=== PATIENT | female | born 1935 | race Two or more races ===

== ENCOUNTER 2019-06-20 21:37 | Inpatient (IN) | payer MEDICAID, OTHER ==
[~2019-06-20] VITALS: Ht 144.8 cm; Wt 67.6 kg
--- NOTE | 2019-06-20 21:40 | NUR ---
BIB EMS C/O ABDOMINAL DISTENTION. HX OF LIVER CIRRHOSIS
[2019-06-20 22:10] LABS: HEMATOCRIT 31 % (33-45); HEMOGLOBIN 10.8 g/dL (11.5-14.8); MONOCYTES # (AUTO) 1.4 /CMM (0.1-1.30); WHITE BLOOD COUNT (AUTO) 10.7 K/uL (4.3-11.0)
[2019-06-20 22:15] LABS: BASOPHILS # (AUTO) 0.1 /CMM (0.0-0.2); BASOPHILS % (AUTO) 0.8 % (0.0-2.0); EOSINOPHILS % (AUTO) 1.5 % (0.0-6.0); MEAN CORPUSCULAR HGB CONC 34 g/dl (31.0-36.0); MEAN CORPUSCULAR VOLUME 107 fL (82-100); MONOCYTES % (AUTO) 13.3 % (2.0-12.0); NEUTROPHILS % (AUTO) 75.4 % (43.0-81.0); PLATELET COUNT (AUTO) 147 /CMM (150-450); RED BLOOD CELL COUNT(AUTO) 2.95 MIL/uL (4.0-5.2)
[2019-06-20 22:25] LABS: CALCIUM, SERUM 9.7 mg/dL (8.5-10.1); POTASSIUM 5.4 mmol/L (3.5-5.1)
[2019-06-20 22:37] LABS: ALBUMIN 3.5 g/dL (3.4-5.0); BILIRUBIN,DIRECT 1.7 mg/dL (0.0-0.2); BILIRUBIN,TOTAL 5.3 mg/dL (0.2-1.0); TOTAL PROTEIN, SERUM 6.9 g/dL (6.4-8.2)
--- NOTE | 2019-06-20 22:57 | NUR ---
PT UNABLE TO PROVIDE ANY HX OR INFO REGARDING HOME MEDS
--- NOTE | 2019-06-20 23:10 | NUR ---
CALLED FOR MS BED
--- NOTE | 2019-06-20 23:32 | NUR ---
PER DTR, PT ONLY RECEIVES TYLE NOL AT HOME. NO HOME MEDS
[2019-06-21] VITALS (7 sets, daily range): BP systolic 100–150; BP diastolic 42–76
--- NOTE | 2019-06-21 00:21 | NUR ---
PT WAS TRANSFERRED TO 309 IN STABLE CONDITION.
--- NOTE | 2019-06-21 00:22 | NUR ---
TELE/RN ADMITTING NOTES: RECEIVED REPORT FROM YANI ER NURSE. PATIENT ARRIVED TO THE UNIT IN STABLE CONDITION AT 0020 VIA GURNEY UNDER ACLS PROTOCOL. A/OX2. RESPONSIVE WHEN TALKED TO. BELARUSIAN SPEAKING. NEEDS ALMOND PASTE MIXER TO ANSWER QUESTIONS. DAUGHTER PRESENT AT BEDSIDE, ALSO BELARUSIAN SPEAKING. MAGUI RAMOS TRANSLATED. PATIENT IS STABLE, NO SOB NOTED. NO S/S OF ACUTE DISTRESS. ON ROOM AIR, SATURATING WELL. ORIENTED PT TO STAFF AND TO THE UNIT. BELONGINGS LIST CHECKED AND SIGNED. VITAL SIGNS TAKEN AND DOCUMENTED. SKIN ASSESSMENT DONE, HAS BILATERAL ARMS BRUISES PRESENT UPON ADMISSION. PATIENT HAS HEMORRHOIDS PRESENT UPON ADMISSION. PICTURES TAKEN AND DOCUMENTED IN THE CHART. HAS SOME MILD NON PITTING EDEMA ON THE BLE. PATIENT HAS WEAKNESS AND UNABLE TO AMBULATE. SHE HAS BEEN ON BED REST ACCORDING TO THE DAUGHTER. ON TELE MONITORING WITH READING OF SINUS RHYTHM HR ON THE 80S. SAFETY MEASURES ARE IN PLACE. HOB ELEVATED FOR COMFORT. BED IN LOW, LOCKED POSITION, WITH SR UP X2. WILL CONTINUE TO MONITOR PT. ACCORDINGLY.
[2019-06-21] MEDS ORDERED: MAG HYDROX/AL HYDROX/SIMETH 30 ML UDC PO PRN (00:30)
[2019-06-21] MEDS ORDERED: FUROSEMIDE 20 MG/2 ML VIAL IV ONE (00:30)
[2019-06-21] MEDS ORDERED: ZOLPIDEM TARTRATE 5 MG TABLET PO PRN (00:30)
[2019-06-21] MEDS ORDERED: MAGNESIUM HYDROXIDE 30 ML UDC PO PRN (00:30)
[2019-06-21] MEDS ORDERED: LACTULOSE 10 G/15 ML UDC (PYXIS) PO ONE (00:30)
[2019-06-21] MEDS ORDERED: Z GUARD REMEDY 2 OZ OINT TP PRN (00:30)
[2019-06-21] MEDS ORDERED: ONDANSETRON HCL/PF 4 MG/2 ML VIAL IVP PRN (00:30)
[2019-06-21] MEDS ORDERED: MORPHINE SULFATE INJ 2 MG/ML DISP.SYRIN IV PRN (00:30)
[2019-06-21] MEDS ORDERED: HYDROCODONE/APAP 5/325MG 1 EACH TABLET PO PRN (00:30)
[2019-06-21] MEDS ORDERED: LACTULOSE 10 G/15 ML UDC (PYXIS) ONE (01:29)
[2019-06-21 04:47] LABS: BASOPHILS % (AUTO) 0.4 % (0.0-2.0); HEMATOCRIT 29 % (33-45); HEMOGLOBIN 9.9 g/dL (11.5-14.8); LYMPHOCYTES # (AUTO) 0.7 /CMM (0.8-4.8); LYMPHOCYTES % (AUTO) 7.2 % (20.0-44.0); MEAN CORPUSCULAR HGB CONC 35 g/dl (31.0-36.0); MEAN CORPUSCULAR VOLUME 106 fL (82-100); MONOCYTES # (AUTO) 1.4 /CMM (0.1-1.30); MONOCYTES % (AUTO) 13.6 % (2.0-12.0); NEUTROPHILS # (AUTO) 7.8 /CMM (1.8-8.9); NEUTROPHILS % (AUTO) 77.8 % (43.0-81.0); PLATELET COUNT (AUTO) 111 /CMM (150-450); RED BLOOD CELL COUNT(AUTO) 2.71 MIL/uL (4.0-5.2)
[2019-06-21 04:56] LABS: APPEARANCE,URINE CLOUDY (CLEAR); BILIRUBIN,URINE NEGATIVE (NEGATIVE); BLOOD, URINE LARGE Ery/uL (NEGATIVE); COLOR,URINE YELLOW (YELLOW); KETONES,URINE NEGATIVE (NEGATIVE); LEUKOCYTE ESTERASE ,URINE LARGE (NEGATIVE); NITRITE, URINE NEGATIVE (NEGATIVE); PH,URINE 5.5 (5.0-8.0); PROTEIN,URINE TRACE mg/dl (NEGATIVE); UGLUCOSE NEGATIVE (NEGATIVE)
[2019-06-21 05:02] LABS: BACTERIA,URINE Moderate /HPF (None Seen); SQUAMOUS EPITHELIAL CELL,UR Moderate /HPF (None Seen); WBC,URINE 51-80 /HPF (0-3)
[2019-06-21 05:03] LABS: SERUM AMMONIA 44 umol/L (11-32)
[2019-06-21 05:09] LABS: ALANINE AMINOTRANSFERASE 32 U/L (12-78); ALBUMIN 3.4 g/dL (3.4-5.0); ALKALINE PHOSPHATASE 136 U/L (46-116); ASPARTATE AMINOTRANSFERASE 68 U/L (15-37); BILIRUBIN,TOTAL 5.2 mg/dL (0.2-1.0); CALCIUM, SERUM 9.4 mg/dL (8.5-10.1); CARBON DIOXIDE 29 mmol/L (21-32); CHLORIDE 100 mmol/L (98-107); CREATININE 1.2 mg/dL (0.6-1.3); GLUCOSE 123 mg/dL (74-106); MAGNESIUM 2.3 mg/dL (1.8-2.4); PHOSPHORUS 3.4 mg/dL (2.5-4.9); POTASSIUM 4.8 mmol/L (3.5-5.1); SODIUM SERUM 135 mmol/L (136-145); TOTAL PROTEIN, SERUM 6.7 g/dL (6.4-8.2); UREA NITROGEN, BLOOD 57 mg/dL (7-18)
[2019-06-21 05:25] LABS: CHOLESTEROL 47 mg/dL (<200); HDL CHOLESTEROL 16 mg/dL (40-60); LDL 33 mg/dL (0-99); TRIGLYCERIDES 33 mg/dL (30-150)
--- NOTE | 2019-06-21 06:15 | NUR ---
TELE/RN CLOSING NOTES: PATIENT REMAINS A/OX2. SLEEPING IN BED. DAUGHTER AT BEDSIDE. PATIENT IS STABLE, NO SOB NOTED. NO S/S OF ACUTE DISTRESS. ON ROOM AIR, SATURATING WELL. NO COMPLAINS OF PAIN OR DISCOMFORT AT THIS TIME. ON TELE MONITORING WITH READING OF SINUS RHYTHM HR ON THE 86. SAFETY MEASURES ARE IN PLACE. HOB ELEVATED FOR COMFORT. BED IN LOW, LOCKED POSITION, WITH SR UP X2. WILL ENDORSE TO DAY SHIFT NURSE FOR NATHAN.
--- NOTE | 2019-06-21 07:30 | NUR ---
RN OPENING NOTE RECEIVED PATIENT IN BED WITH DAUGHTER AT BEDSIDE. ALERT, ORIENTED X2 AND TURKS AND [place]-SPEAKING ONLY. PATIENT IS STABLE, NO SOB NOTED. NO S/S OF ACUTE DISTRESS. ON ROOM AIR, SATURATING WELL. ON TELE MONITORING WITH SR NOTED. NO COMPLAINS OF PAIN OR DISCOMFORT AT THIS TIME. IV SITE CLEAN, DRY AND PATENT. FOR US GUIDED PARACENTESIS TODAY, ABDOMINAL EDEMA NOTED. SAFETY MEASURES ARE IN PLACE. HOB ELEVATED FOR COMFORT. BED IN LOW, LOCKED POSITION, WITH SR UP X2. WILL CONTINUE TO MONITOR.
[2019-06-21] MEDS ORDERED: SIME80TA30 PO (08:24)
[2019-06-21] MEDS ORDERED: ACET-868 PO (08:24)
[2019-06-21] MEDS: PANTOPRAZOLE 40 MG TABLET.DR PO SCH (08:28)
[2019-06-21] MEDS ORDERED: LACTULOSE 10 G/15 ML UDC (PYXIS) PO PRN (08:30)
--- NOTE | 2019-06-21 09:00 | NUR ---
RN NOTE: PATIENT ORDERED FOR LI CATHETER INSERTION BY DR. VELIZ. NOTED AND CARRIED OUT.
[2019-06-21] MEDS: FUROSEMIDE 40 MG/4 ML VIAL IV SCH ×2 (09:51→17:22)
[2019-06-21] MEDS: SPIRONOLACTONE 25 MG TABLET PO SCH (09:52)
[2019-06-21] MEDS: CARVEDILOL 6.25 MG TABLET PO SCH ×2 (09:52→21:00)
[2019-06-21] MEDS: CEFTRIAXONE 1 G in IV D5W 50 ML IV SCH (10:20)
--- NOTE | 2019-06-21 12:22 | NUR ---
RN NOTE: ORDER OBTAINED FROM DR. MARTINEZ FOR ANUSOL CREAM BID FOR PATIENT. NOTED AND CARRIED OUT
[2019-06-21] MEDS: HYDROCORTISONE CR 30 GM TUBE RC SCH (17:22)
--- NOTE | 2019-06-21 19:05 | NUR ---
RN CLOSING NOTE: PATIENT IN BED WITH DAUGHTER AT BEDSIDE. ALERT, ORIENTED X2-3 AND CITIZEN OF [place]-SPEAKING ONLY. PATIENT IS STABLE, NO SOB NOTED. NO S/S OF ACUTE DISTRESS. ON ROOM AIR, SATURATING WELL. DISCOMFORT NOTED WITH HEMORRHOIDS AND RELIEVED BY PRESCRIBED CREAM FROM EARLIER ON SHIFT. IV SITE CLEAN, DRY AND PATENT. US GUIDED PARACENTESIS CANCELLED. ABDOMINAL EDEMA STILL NOTED. WITH LI CATHETER IN PLACE DRAINING TEA COLORED URINE. SAFETY MEASURES ARE IN PLACE. CALL LIGHT IN REACH. HOB ELEVATED FOR COMFORT. BED IN LOW, LOCKED POSITION, WITH SR UP X2. WILL CONTINUE TO MONITOR.
--- NOTE | 2019-06-21 19:30 | NUR ---
RN NOTES RECEIVED PT. SLEEPING BUT AROUSABLE, MALTESE SPEAKING, FAMILY AT BEDSIDE, F/C DRAINING CLEAR YELLOW URINE, NOT IN DISTRESS, NO PAIN NOTED, SIDERAILSUPX2, CONTINUE TO MONITOR
--- NOTE | 2019-06-21 21:00 | NUR ---
RN NOTES RECHECKED PT. BLOOD PRESSURE 103/47, HELD PT. COREG 6.25
--- NOTE | 2019-06-22 02:30 | NUR ---
RN NOTES COMPLAINED OF HEMORRHOID'S PAIN- NOROC 5/325MG PO GIVEN ORDERED, V/S STABLE
[2019-06-22 04:13] LABS: BASOPHILS % (AUTO) 0.5 % (0.0-2.0); EOSINOPHILS % (AUTO) 2.6 % (0.0-6.0); HEMATOCRIT 28 % (33-45); HEMOGLOBIN 9.4 g/dL (11.5-14.8); LYMPHOCYTES # (AUTO) 0.7 /CMM (0.8-4.8); MEAN CORPUSCULAR HGB CONC 34 g/dl (31.0-36.0); MEAN CORPUSCULAR VOLUME 108 fL (82-100); MONOCYTES # (AUTO) 1.1 /CMM (0.1-1.30); NEUTROPHILS # (AUTO) 5.3 /CMM (1.8-8.9); NEUTROPHILS % (AUTO) 71.9 % (43.0-81.0); PLATELET COUNT (AUTO) 97 /CMM (150-450); RED BLOOD CELL COUNT(AUTO) 2.57 MIL/uL (4.0-5.2); WHITE BLOOD COUNT (AUTO) 7.4 K/uL (4.3-11.0)
[2019-06-22 04:51] LABS: CALCIUM, SERUM 9.1 mg/dL (8.5-10.1); CARBON DIOXIDE 32 mmol/L (21-32); CHLORIDE 102 mmol/L (98-107); CREATININE 1.2 mg/dL (0.6-1.3); GLUCOSE 110 mg/dL (74-106); POTASSIUM 4.4 mmol/L (3.5-5.1); SODIUM SERUM 136 mmol/L (136-145); UREA NITROGEN, BLOOD 60 mg/dL (7-18)
[2019-06-22 05:41] LABS: EOSINOPHILS % (MANUAL) 2 % (0-4); MONOCYTES % (MANUAL) 10 % (0-11.0)
[2019-06-22 05:42] LABS: LYMPHOCYTES % (MANUAL) 6 % (16-48); NEUTROPHILS % (MANUAL) 82 (42-76)
--- NOTE | 2019-06-22 06:36 | NUR ---
RN NOTES SLEEPING BUT AROUSABLE, MORNING CARE RENDERED, NOT IN DISTRESS, NO PAIN NOTED, CALL LIGHT WITHIN REACH, SIDERAILSUPX2, PT. NEEDS ATTENDED. ENDORSED TO DAYSHIFT NURSE FOR CONTINUITY OF CARE
--- NOTE | 2019-06-22 07:38 | NUR ---
MS RN NOTES PATIENT RECEIVED IN BED SLEEPING, AWAKEN BY NAME AND LIGHT TOUCH. PATIENT ALERT AND ORIENTED X 2, MAINLY ITALIAN SPEAKING, ACCOMPANIED BY DAUGHTER AT BEDSIDE. PATIENT ON ROOM AIR, NO SIGN OF RESPIRATORY DISTRESS, NO SIGNS OF SOB, WITH EVEN NON-LABORED BREATHING. PATIENT SKIN WARM AND DRY, IV ACCESS INTACT AND PATENT. LI CATHETER IN PLACE AND INTACT WITH CLEAR AND YELLOW URINE. PATIENT PRESENTS NO DISCOMFORT OR PAIN, PROVIDED COMFORT MEASURES FOR PATIENT. SAFETY PRECAUTIONS IN PLACE WITH BED IN THE LOWEST POSITION, BED ALARM ON, BED LOCKED, BILATERAL SIDE RAILS UP, AND CALL LIGHT WITHIN EASY REACH. WILL CONTINUE TO MONITOR PATIENT.
[2019-06-22 08:09] VITALS: BP 141/60
[2019-06-22] MEDS: PANTOPRAZOLE 40 MG TABLET.DR PO SCH (08:24)
[2019-06-22] MEDS: SPIRONOLACTONE 25 MG TABLET PO SCH (08:25)
[2019-06-22] MEDS: FUROSEMIDE 40 MG/4 ML VIAL IV SCH ×2 (08:26→16:32)
[2019-06-22] MEDS: CARVEDILOL 6.25 MG TABLET PO SCH ×2 (08:26→21:15)
[2019-06-22] MEDS: HYDROCORTISONE CR 30 GM TUBE RC SCH ×2 (08:27→16:46)
--- NOTE | 2019-06-22 08:45 | NUR ---
MS RN NOTES PATIENT SEEN AND EXAMINED BY DR VELIZ, WITH ORDER FOR STAT CHEST XRAY, RADIOLOGY MADE AWARE. WILL CONTINUE TO MONITOR
--- NOTE | 2019-06-22 08:57 | NUR ---
MS RN NOTES RECEIVED CALL FROM DR PLUMMER REGARDING GI CONSULT REFERRED BY DR VELIZ, VERBALIZED THAT HE WILL COME AND SEE PATIENT TODAY. DR VELIZ MADE AWARE, NO FURTHER ORDERS AT THIS TIME. WILL CONTINUE TO MONITOR
[2019-06-22] MEDS: CEFTRIAXONE 1 G in IV D5W 50 ML IV SCH (09:04)
[2019-06-22 16:00] VITALS: BP 106/54
--- NOTE | 2019-06-22 16:33 | NUR ---
MS RN NOTES FUROSEMIDE (LASIX) HOLD DUE TO DECREASE BP, 106/54, HR, 68. WILL CONTINUE TO MONITOR PATIENT.
--- NOTE | 2019-06-22 18:35 | NUR ---
MS RN NOTES PATIENT IN BED SLEEPING, EASILY AWAKEN BY NAME AND LIGHT TOUCH. ALERT AND ORIENTED X 2 MAINLY [place] SPEAKING, AND ACCOMPANIED BY FAMILY AT BEDSIDE. PATIENT ON ROOM AIR, WITH EVEN NON-LABORED BREATHING, NO SIGNS OF RESPIRATORY DEPRESSION PRESENT. PATIENT'S LI IN PLACE AND INTACT, WITH TEA COLOR AND CLEAR URINE OUTPUT. IV ACCESS IN PLACE, INTACT, AND PATENT. PROVIDED COMFORT MEASURES FOR PATIENT. PATIENT PRESENTS AND STATES NO DISCOMFORT OR PAIN. SAFETY PRECAUTIONS IN PLACE WITH BED IN THE LOWEST POSITION, BED LOCKED, BED ALARM ON, BILATERAL SIDE RAILS UP, AND CALL LIGHT WITHIN EASY REACH. WILL ENDORSE NATHAN TO UPCOMING NIGHTSHIFT NURSE.
--- NOTE | 2019-06-22 19:30 | NUR ---
ms manganese heater initial notes received pt in bed resting with eyes closed but arouse to touch and to her name,. breathing even and non-labored not in any acute distress noted. abdomen soft and not distended. bowel sounds present , skin warm and dry to touch.Pt caregiver at the bedside. kept pt warm and comfortable at all times. will continue monitoring.
[2019-06-22 20:00] VITALS: BP 122/54
--- NOTE | 2019-06-23 00:14 | NUR ---
ms supervisor respiratory notes pt sleeping comfortably in bed without any distress noted. reposition her for comfort. will continue monitoring.
--- NOTE | 2019-06-23 07:35 | NUR ---
ms horologist closing notes pt sleeping well but arouse to touch. no signs of any discomfort and acute distress noted. kept her warm and comfortable at all times. endorse to am nurse for continuity of care. place call light at reach.
--- NOTE | 2019-06-23 08:00 | NUR ---
MS RN OPENING NOTES RECEIVED PT IN BED SLEEPING, EASILY AROUSSABLE. REPONSIVE TO VERBAL AND TACTILE STIMULI. DAUGHTER BY BEDSIDE AT THIS TIME. PT IS ALERT AND ORIENTED X 2 UPPER SORBI[place] SPEAKING ONLY. NO CARDIAC OR RESPIRATORY DISTRESS NOTED. PATIENT ON ROOM AIR, NO SOB NOTED. SATURATING WELL. BREATHING EVEN AND UNLABORED. LI IN PLACE AND INTACT, DRAINING WITH YELLOW URINE. IV ACCESS NOTED ON R AC G20. IV SITE INTACT, AND PATENT. NO S/S OF INFILTRATION OR INFECTION NOTED. PT HAS NO COMPLAINTS OF PAIN OR DISCOMFORT. SAFETY PRECAUTIONS IN PLACE. BED LOCKED AND IN LOW POSITION.BILATERAL SIDE RAILS UP X2, AND CALL LIGHT WITHIN EASY REACH.
[2019-06-23 08:22] VITALS: BP 124/56
[2019-06-23] MEDS: FUROSEMIDE 100 MG/10 ML VIAL IV SCH ×3 (08:27→16:33)
[2019-06-23] MEDS: PANTOPRAZOLE 40 MG TABLET.DR PO SCH (08:28)
[2019-06-23] MEDS: SPIRONOLACTONE 25 MG TABLET PO SCH (08:33)
[2019-06-23] MEDS: CARVEDILOL 6.25 MG TABLET PO SCH ×2 (08:34→21:07)
[2019-06-23] MEDS: HYDROCORTISONE CR 30 GM TUBE RC SCH ×2 (08:51→16:34)
[2019-06-23] MEDS: CEFTRIAXONE 1 G in IV D5W 50 ML IV SCH (09:01)
[2019-06-23 09:19] LABS: ALBUMIN 2.9 g/dL (3.4-5.0); BILIRUBIN,TOTAL 4.1 mg/dL (0.2-1.0); CREATININE 1.2 mg/dL (0.6-1.3); POTASSIUM 4.4 mmol/L (3.5-5.1); TOTAL PROTEIN, SERUM 6.4 g/dL (6.4-8.2)
[2019-06-23 10:01] LABS: BILIRUBIN,DIRECT 1.6 mg/dL (0.0-0.2); BILIRUBIN,TOTAL 4.1 mg/dL (0.2-1.0); TOTAL PROTEIN, SERUM 6.4 g/dL (6.4-8.2)
[2019-06-23 16:15] VITALS: BP 122/52
--- NOTE | 2019-06-23 18:08 | NUR ---
MS RN CLOSING NOTE PT IN BED ALEEP BUT EASILY AROUSSABLE. RESPONSIVE TO VERBAL AND TACTILE STIMULI. [place] SPEAKING ONLY. HER DAUGHTER IS BY THE BEDSIDE AT THIS TIME. PT IS ALERT AND ORIENTED X 2. NO CARDIAC OR RESPIRATORY DISTRESS NOTED. PATIENT ON ROOM AIR, NO SOB NOTED. SATURATING WELL. BREATHING EVEN AND UNLABORED. LI CATHETER IN PLACE AND INTACT, DRAINING WITH ERENDIRA URINE. SHE CONTINUES TO BE ON DIURETICS. IV ACCESS NOTED ON R AC G20. IV SITE INTACT, AND PATENT. NO S/S OF INFILTRATION OR INFECTION NOTED. PT HAS NO COMPLAINTS OF PAIN OR DISCOMFORT. SAFETY PRECAUTIONS IN PLACE. BED LOCKED AND IN LOW POSITION.BILATERAL SIDE RAILS UP X2, AND CALL LIGHT WITHIN EASY REACH. WILL ENDORSE TO NEXT SHIFT.
--- NOTE | 2019-06-23 19:05 | NUR ---
MS RN NOTE RECEIVED PT IN STABLE CONDITION A/O X2, NOTED IN BED WITH FAMILY AT BEDSIDE. NO SIGNS OF SOB OR DISTRESS, NO INDICATION OF PAIN OR N/V. NOTED WITH LI ADEQUATE URINE DRAINING. R AC #[address] S/L. ALL CURRENT NEEDS ATTENDED TO BED LOW, LOCKED, UPPER RAILS UP, AND CALL LIGHT WITHIN REACH. WILL CONT. TO MONITOR.
[2019-06-23 20:00] VITALS: BP 125/50
--- NOTE | 2019-06-24 06:31 | NUR ---
MS RN NOTE PT REMAINS IN STABLE CONDITION A/O X2, NOTED IN BED WITH FAMILY AT BEDSIDE. NO SIGNS OF SOB OR DISTRESS, NO INDICATION OF PAIN OR N/V. NOTED WITH LI ADEQUATE URINE DRAINING. R AC #[address] S/L. ALL CURRENT NEEDS ATTENDED TO BED LOW, LOCKED, UPPER RAILS UP, AND CALL LIGHT WITHIN REACH. WILL CONT. TO MONITOR AND ENDORSE TO NEXT SHIFT FOR NATHAN.
[2019-06-24] MEDS: PANTOPRAZOLE 40 MG TABLET.DR PO SCH (07:57)
--- NOTE | 2019-06-24 08:00 | NUR ---
MS/RN OPENING NOTES RECEIVED LYING ON BED. PT REMAINS IN STABLE CONDITION A/O X2, NOTED IN BED WITH FAMILY AT BEDSIDE. NO SIGNS OF SOB OR DISTRESS, NO INDICATION OF PAIN OR N/V. NOTED WITH LI ADEQUATE URINE DRAINING. R AC #[address] S/L. ALL CURRENT NEEDS ATTENDED TO BED LOW, LOCKED, UPPER RAILS UP, AND CALL LIGHT WITHIN REACH. WILL CONT. TO MONITOR
[2019-06-24] MEDS: CARVEDILOL 6.25 MG TABLET PO SCH ×2 (08:56→20:29)
[2019-06-24] MEDS: SPIRONOLACTONE 25 MG TABLET PO SCH (08:57)
[2019-06-24] MEDS: FUROSEMIDE 100 MG/10 ML VIAL IV SCH ×3 (09:01→16:34)
[2019-06-24] MEDS: HYDROCORTISONE CR 30 GM TUBE RC SCH ×2 (09:21→17:10)
--- NOTE | 2019-06-24 10:00 | NUR ---
MS/RN NOTES INITIATED IV INSERTION AT LEFT UPPER ARM 24G PATENT AND INTACT.
[2019-06-24 16:00] VITALS: BP_SYST 114; BP_SYST 119; BP_DIAS 51; BP_DIAS 56
--- NOTE | 2019-06-24 19:00 | NUR ---
SWAPNA acharya opening notes Received pt from morning nurse. Pt is resting in bed comfortably. Pt is alert and orientedX1-2. Pt speaks Setswana and able to make needs known. Pt's daughter at the bedside. IV sites at MARILY # 22 is clean, intact, patent and SL. De La Cruz cath is intact, patent and draining yellow urine. Safety precautions is maintained. Bed at low position, brakes locked, side rails upX3 and call light is within reach. Will continue to monitor. Addendum: 06/24/19 at 2118 by MICHELET PUENTES RN Respiration is normal. No SOB. No S/S of distress noted.
--- NOTE | 2019-06-24 19:24 | NUR ---
MS/RN NOTES PT IN BED SLEEPING BUT EASILY AROUSSABLE. RESPONSIVE TO VERBAL AND TACTILE STIMULI. [place]AN[place] SPEAKING ONLY. HER DAUGHTER IS BY THE BEDSIDE AT THIS TIME. PT IS ALERT AND ORIENTED X 2. NO CARDIAC OR RESPIRATORY DISTRESS NOTED. PATIENT ON ROOM AIR, NO SOB NOTED. SATURATING WELL. BREATHING EVEN AND UNLABORED. LI CATHETER IN PLACE AND INTACT, DRAINING WITH ERENDIRA URINE. SHE CONTINUES TO BE ON DIURETICS. IV ACCESS ON MARLIY 24G IV SITE INTACT, AND PATENT. NO S/S OF INFILTRATION OR INFECTION NOTED. PT HAS NO COMPLAINTS OF PAIN OR DISCOMFORT. SAFETY PRECAUTIONS IN PLACE. BED LOCKED AND IN LOW POSITION.BILATERAL SIDE RAILS UP X2, AND CALL LIGHT WITHIN EASY REACH. WILL ENDORSE TO NEXT SHIFT.
[2019-06-24 20:00] VITALS: BP 115/49
[2019-06-25 06:18] LABS: BASOPHILS % (AUTO) 0.6 % (0.0-2.0); EOSINOPHILS % (AUTO) 2.5 % (0.0-6.0); HEMATOCRIT 28 % (33-45); HEMOGLOBIN 9.5 g/dL (11.5-14.8); LYMPHOCYTES # (AUTO) 0.7 /CMM (0.8-4.8); LYMPHOCYTES % (AUTO) 11.5 % (20.0-44.0); MEAN CORPUSCULAR HGB CONC 35 g/dl (31.0-36.0); MEAN CORPUSCULAR VOLUME 107 fL (82-100); MONOCYTES # (AUTO) 1.1 /CMM (0.1-1.30); MONOCYTES % (AUTO) 16.4 % (2.0-12.0); NEUTROPHILS # (AUTO) 4.5 /CMM (1.8-8.9); PLATELET COUNT (AUTO) 92 /CMM (150-450); RED BLOOD CELL COUNT(AUTO) 2.58 MIL/uL (4.0-5.2); WHITE BLOOD COUNT (AUTO) 6.5 K/uL (4.3-11.0)
--- NOTE | 2019-06-25 06:40 | NUR ---
RN medsurg closing notes Pt is resting in bed comfortably. Respiration is normal. No SOB. No S/S of distress noted. IV sites at MARILY# 22 is clean, intact, patent and SL. VS is stable. Routine med was given as ordered. De La Cruz cath is intact, patent and draining yellow urine 700 ml. Kept Pt clean, dry, warm and comfortable. Turned and repositioned Q 2 HR. Safety precautions is maintained. Bed at low position, brakes locked, side rails upX3 and call light is within reach. Will endorse to morning nurse for NATHAN.
[2019-06-25 06:41] LABS: ALANINE AMINOTRANSFERASE 34 U/L (12-78); ALBUMIN 2.9 g/dL (3.4-5.0); ALKALINE PHOSPHATASE 114 U/L (46-116); ASPARTATE AMINOTRANSFERASE 57 U/L (15-37); BILIRUBIN,TOTAL 3.3 mg/dL (0.2-1.0); CALCIUM, SERUM 9.4 mg/dL (8.5-10.1); CARBON DIOXIDE 32 mmol/L (21-32); CHLORIDE 103 mmol/L (98-107); CREATININE 1.2 mg/dL (0.6-1.3); GLUCOSE 108 mg/dL (74-106); MAGNESIUM 2.2 mg/dL (1.8-2.4); PHOSPHORUS 3.4 mg/dL (2.5-4.9); POTASSIUM 4.2 mmol/L (3.5-5.1); SODIUM SERUM 141 mmol/L (136-145); TOTAL PROTEIN, SERUM 6.3 g/dL (6.4-8.2); UREA NITROGEN, BLOOD 59 mg/dL (7-18)
[2019-06-25 07:32] LABS: EOSINOPHILS % (MANUAL) 5 % (0-4); LYMPHOCYTES % (MANUAL) 9 % (16-48); MONOCYTES % (MANUAL) 14 % (0-11.0); NEUTROPHILS % (MANUAL) 72 (42-76)
[2019-06-25] MEDS: PANTOPRAZOLE 40 MG TABLET.DR PO SCH (07:48)
[2019-06-25 08:00] VITALS: BP 127/56
[2019-06-25] MEDS ORDERED: RIFA550T PO (08:41)
[2019-06-25] MEDS ORDERED: SPIR25TA6 PO (08:41)
[2019-06-25] MEDS ORDERED: LACT10SO PO (08:41)
[2019-06-25] MEDS ORDERED: CARV6.252 PO (08:41)
[2019-06-25] MEDS: CARVEDILOL 6.25 MG TABLET PO SCH (09:13)
[2019-06-25] MEDS: SPIRONOLACTONE 25 MG TABLET PO SCH (09:13)
[2019-06-25] MEDS: HYDROCORTISONE CR 30 GM TUBE RC SCH ×2 (09:19→17:04)
[2019-06-25 16:00] VITALS: BP 127/52
--- NOTE | 2019-06-25 19:15 | NUR ---
MS/RN CLOSING NOTES PATIENT IS ALERT AND ORIENTED X2. DENIES PAIN AT THIS TIME. RESPIRATION REGULAR ND UNLABORED. SATURATION OXYGEN AT 96%. THE PATIENT IN NO APPARENT DISTRESS. SEEN AND EXAMINED BY MD WITH ORDERS MADE AND CARRIED OUT.PATIENT'S DAUGHTER WAS GIVEN A DISCHARGED INSTRUCTIONS AND DAUGHTER VERBALIZED UNDERSTANDING. THE PATIENT LEFT THE HOSPITAL IN STABLE CONDITION ACCOMPANIED BY GINAPIERRESUSANA DAUGHTER VIA AMBULANCE.
== END 2019-06-25 19:15 | disposition home or self-care (01) | DRG 441 ==
LOC: ER 21:38 → MED 23:25 → TELE 06-21 02:42 → MED 06-21 10:12
PROVIDERS: ADMIT Internal Medicine; ATTEND Internal Medicine
DX: K72.90 Hepatic failure, unspecified without coma (principal); E43 Unspecified severe protein-calorie malnutrition; G93.41 Metabolic encephalopathy; I21.A1 Myocardial infarction type 2; I50.33 Acute on chronic diastolic (congestive) heart failure; N17.0 Acute kidney failure with tubular necrosis; K72.00 Acute and subacute hepatic failure without coma; J96.01 Acute respiratory failure with hypoxia; R18.8 Other ascites; E87.1 Hypo-osmolality and hyponatremia; N39.0 Urinary tract infection, site not specified; D68.59 Other primary thrombophilia; E66.2 Morbid (severe) obesity with alveolar hypoventilation; J98.11 Atelectasis; K74.60 Unspecified cirrhosis of liver; I11.0 Hypertensive heart disease with heart failure; D63.8 Anemia in other chronic diseases classified elsewhere; D69.6 Thrombocytopenia, unspecified; E11.9 Type 2 diabetes mellitus without complications; E78.5 Hyperlipidemia, unspecified; I70.0 Atherosclerosis of aorta; K72.10 Chronic hepatic failure without coma; I48.91 Unspecified atrial fibrillation; I27.20 Pulmonary hypertension, unspecified
CPT/HCPCS: 36415; 71045-TC; 76705-TC; 80048-TC; 80053-TC; 80061-TC; 80076-TC; 81000-TC; 82140-TC; 82962-TC; 83735-TC; 83880; 84100-TC; 84443-TC; 84484-TC; 85025-TC; 85730-TC; 87081-TC; 87086-TC; 93307-TC; 93976-TC; G0378; J0696; J1940; J3490; J7060